=== PATIENT | female | born 1970 | race Caucasian/White ===

== ENCOUNTER → 2020-06-09 | Outpatient (CLI) | payer MEDICAID ==
[~2020-06-09] MED LIST: ACET-2708 PO; LEVO75TA7 PO; METF-414 PO
== END | disposition home or self-care (01) ==
LOC: LAB 08:29
PROVIDERS: ATTEND Neurological Surgery
DX: Z01.812 Encounter for preprocedural laboratory examination (principal); Z20.828 Contact with and (suspected) exposure to other viral communicable diseases
CPT/HCPCS: C9803; U0003

== ENCOUNTER 2020-06-11 05:24 | Inpatient (IN) | payer MEDICAID ==
[~2020-06-11] VITALS: Ht 165.1 cm; Wt 71.7 kg
[2020-06-11] VITALS (26 sets, daily range): BP systolic 72–133; BP diastolic 53–77
[2020-06-11] MEDS ORDERED: NORMAL SALINE 0.9% 10 ML SYR ONE (05:57)
[2020-06-11] MEDS ORDERED: THROMBIN (BOVINE) 5000 UNITS/VIAL TOP ONE (05:57)
[2020-06-11] MEDS ORDERED: BACITRACIN 50,000 UNITS/VIAL ONE (05:58)
[2020-06-11] MEDS ORDERED: SODIUM CHLORIDE 0.9% 1,000 ML IV SCH (06:00)
[2020-06-11 06:36] LABS: UCG SCREEN NEGATIVE
[2020-06-11] MEDS ORDERED: ROCURONIUM BROMIDE 10MG/ML VIAL 5ML IV ONE (07:00)
[2020-06-11] MEDS ORDERED: PROPOFOL 200MG/20ML VIAL IV ONE (07:00)
[2020-06-11] MEDS ORDERED: MIDAZOLAM HCL 2 MG/2 ML VIAL ONE (07:00)
[2020-06-11] MEDS ORDERED: FENTANYL CITRATE/PF 50MCG/ML 2ML VIAL ONE ×2 (07:00→07:39)
[2020-06-11] MEDS ORDERED: NEOSTIGMINE METHYLSULFATE 1MG/ML 10 ML VIAL ONE (07:00)
[2020-06-11] MEDS ORDERED: GLYCOPYRROLATE 0.2 MG/ML 2ML VIAL ONE (07:01)
[2020-06-11] MEDS ORDERED: NICARDIPINE 100 MG in SODIUM CHLORIDE 0.9% 60 ML IV PRN (07:15)
[2020-06-11] MEDS ORDERED: DEXAMETHASONE 4MG/ML 1ML VIAL ONE (07:37)
[2020-06-11] MEDS ORDERED: ONDANSETRON HCL 4MG/2ML INJ ONE (07:37)
[2020-06-11] MEDS ORDERED: LABETALOL HCL 5MG/ML VIAL 20ML IV ONE (09:00)
[2020-06-11] MEDS ORDERED: SODIUM CHLORIDE 0.9% 10ML VIAL ONE (09:00)
[2020-06-11] MEDS ORDERED: LIDOCAINE HCL 1% 20ML VIAL (Pyxis) INJ ONE (09:00)
[2020-06-11] MEDS ORDERED: EPHEDRINE SULFATE 50MG/ML VIAL ONE (09:00)
[2020-06-11] MEDS ORDERED: CEFAZOLIN SODIUM 1000MG/VIAL ONE (09:00)
[2020-06-11] MEDS: MORPHINE SULFATE 4 MG/ML CPJ (NOT FOR IM USE) IV PRN ×2 (09:44→18:22)
[2020-06-11] MEDS: DEXT 5%/LACTATED RINGERS 1,000 ML IV SCH ×3 (09:45→20:03)
[2020-06-11] MEDS ORDERED: NALOXONE INJ IV PRN (10:15)
[2020-06-11] MEDS ORDERED: ONDANSETRON INJ IV PRN (10:15)
[2020-06-11] MEDS: HYDROMORPHONE PCA 10MG/50ML IV PRN (11:11)
[2020-06-11] MEDS: DEXAMETHASONE 4MG/ML 1ML VIAL IV SCH ×3 (12:55→23:52)
[2020-06-11] MEDS: CEFAZOLIN 1000MG PREMIX 50 ML IV SCH ×2 (13:34→21:21)
[2020-06-11] MEDS: DIPHENHYDRAMINE INJ IV PRN ×2 (13:39→20:16)
[2020-06-11] MEDS ORDERED: SENNOSIDES/DOCUSATE SOD 8.6/50MG TABLET PO PRN (13:45)
[2020-06-11] MEDS ORDERED: CEFAZOLIN SODIUM 1000MG/VIAL IV SCH (14:00)
[2020-06-12] VITALS (21 sets, daily range): BP systolic 98–157; BP diastolic 61–95
[2020-06-12] MEDS: CEFAZOLIN 1000MG PREMIX 50 ML IV SCH ×2 (05:18→15:01)
[2020-06-12] MEDS: DEXAMETHASONE 4MG/ML 1ML VIAL IV SCH ×2 (05:18→12:25)
[2020-06-12] MEDS: DIPHENHYDRAMINE INJ IV PRN (05:18)
[2020-06-12 05:46] LABS: CHLORIDE 105 mEq/L (98-107)
[2020-06-12 05:47] LABS: HEMATOCRIT. 36.9 % (36.0-48.0); HEMOGLOBIN. 12.5 g/dL (12.0-16.0); MEAN CORPUSCULAR HEMOGLOBIN 30.8 pg (28.0-32.0); MEAN PLATELET VOLUME 7.9 fl (7.4-10.4); PLATELET 315 x1000/uL (130-400); RED BLOOD CELL COUNT 4.05 mill/uL (4.2-5.4); RED CELL DISTRIBUTION WIDTH 13.6 % (11.6-14.6)
[2020-06-12] MEDS ORDERED: DEXTROSE 50% WATER 50ML SYRINGE IV PRN ×2 (09:30→10:30)
[2020-06-12 10:54] LABS: PLATELET ESTIMATE NORMAL
[2020-06-12] MEDS ORDERED: BLOOD SUGAR DIAGNOSTIC STRIP TEST SCH (11:30)
[2020-06-12] MEDS ORDERED: INSULIN LISPRO 100 UNITS/ML SUBCUT SCH (12:00)
[2020-06-12] MEDS: BLOOD SUGAR DIAGNOSTIC STRIP TEST SCH ×3 (12:25→21:03)
[2020-06-12] MEDS: INSULIN LISPRO 100 UNITS/ML SUBCUT SCH ×3 (12:30→22:27)
[2020-06-12] MEDS: DEXT 5%/LACTATED RINGERS 1,000 ML IV SCH (13:42)
[2020-06-12] MEDS: HYDROMORPHONE PCA 10MG/50ML IV PRN (22:32)
[2020-06-13] VITALS: BP 123/68
[2020-06-13] MEDS: DEXT 5%/LACTATED RINGERS 1,000 ML IV SCH ×2 (01:39→10:00)
[2020-06-13 04:00] VITALS: BP 126/83
[2020-06-13] MEDS: BLOOD SUGAR DIAGNOSTIC STRIP TEST SCH ×4 (06:28→21:00)
[2020-06-13] MEDS: INSULIN LISPRO 100 UNITS/ML SUBCUT SCH ×4 (06:29→21:00)
[2020-06-13] MEDS: LEVOTHYROXINE SODIUM 75MCG TABLET PO SCH (06:30)
[2020-06-13 06:46] LABS: BASOPHILS % 0.1 % (0.0-2.0); EOSINOPHILS % 0.1 % (0.0-5.0); HEMATOCRIT. 37.6 % (36.0-48.0); HEMOGLOBIN. 12.6 g/dL (12.0-16.0); LYMPHOCYTES % 15.7 % (20.0-50.0); MEAN CORPUSCULAR HEMOGLOBIN 30.5 pg (28.0-32.0); MEAN CORPUSCULAR VOLUME 91.1 fL (81.0-99.0); MEAN PLATELET VOLUME 8.3 fl (7.4-10.4); MONOCYTES % 5.3 % (2.0-8.0); NEUTROPHILS % 78.8 % (40.0-76.0); PLATELET 315 x1000/uL (130-400); RED BLOOD CELL COUNT 4.13 mill/uL (4.2-5.4); RED CELL DISTRIBUTION WIDTH 13.5 % (11.6-14.6)
[2020-06-13 06:53] LABS: CHLORIDE 106 mEq/L (98-107)
[2020-06-13 08:00] VITALS: BP 124/79
[2020-06-13] MEDS: METFORMIN HCL 500MG TABLET PO SCH (08:27)
[2020-06-13] MEDS: DOCUSATE SODIUM 100MG CAPSULE PO SCH ×2 (08:27→08:30)
[2020-06-13 12:00] VITALS: BP 155/58
[2020-06-13 16:00] VITALS: BP 103/75
[2020-06-13 20:00] VITALS: BP 112/81
[2020-06-14] VITALS: BP 116/86
[2020-06-14 04:00] VITALS: BP 111/79
[2020-06-14] MEDS: DEXT 5%/LACTATED RINGERS 1,000 ML IV SCH (05:15)
[2020-06-14] MEDS: BLOOD SUGAR DIAGNOSTIC STRIP TEST SCH (06:18)
[2020-06-14] MEDS: LEVOTHYROXINE SODIUM 75MCG TABLET PO SCH (06:18)
[2020-06-14] MEDS: INSULIN LISPRO 100 UNITS/ML SUBCUT SCH (06:24)
[2020-06-14 06:34] LABS: BASOPHILS % 0.4 % (0.0-2.0); EOSINOPHILS % 0.8 % (0.0-5.0); HEMATOCRIT. 38.8 % (36.0-48.0); HEMOGLOBIN. 13.2 g/dL (12.0-16.0); LYMPHOCYTES % 28.5 % (20.0-50.0); MEAN CORPUSCULAR HEMOGLOBIN 30.7 pg (28.0-32.0); MEAN CORPUSCULAR VOLUME 90.3 fL (81.0-99.0); MEAN PLATELET VOLUME 8.1 fl (7.4-10.4); MONOCYTES % 5.1 % (2.0-8.0); NEUTROPHILS % 65.2 % (40.0-76.0); PLATELET 301 x1000/uL (130-400); RED CELL DISTRIBUTION WIDTH 13.5 % (11.6-14.6)
[2020-06-14 07:48] LABS: CHLORIDE 107 mEq/L (98-107)
[2020-06-14 08:00] VITALS: BP 104/75
[2020-06-14] MEDS: METFORMIN HCL 500MG TABLET PO SCH (08:26)
[2020-06-14] MEDS: DOCUSATE SODIUM 100MG CAPSULE PO SCH (08:26)
[2020-06-14 11:18] VITALS: BP 104/75
[2020-06-14 12:00] VITALS: BP 116/80
== END 2020-06-14 12:09 | disposition home or self-care (01) | DRG 321 ==
LOC: OR 05:24 → MICUNO 05:25 → 6EST 06-12 10:37
PROVIDERS: ADMIT Internal Medicine; ATTEND Internal Medicine
PROC: 0RG20J0 Fusion of 2 or more Cervical Vertebral Joints with Synthetic Substitute, Anterior Approach, Anterior Column, Open Approach (ICD-10-PCS; principal; 2020-06-11)
PROC: 0RB30ZZ Excision of Cervical Vertebral Disc, Open Approach (ICD-10-PCS; 2020-06-11)
PROC: 0RG10K0 Fusion of Cervical Vertebral Joint with Nonautologous Tissue Substitute, Anterior Approach, Anterior Column, Open Approach (ICD-10-PCS; 2020-06-11)
PROC: 00NW0ZZ Release Cervical Spinal Cord, Open Approach (ICD-10-PCS; 2020-06-11)
PROC: BR101ZZ Fluoroscopy of Cervical Spine using Low Osmolar Contrast (ICD-10-PCS; 2020-06-11)
DX: M48.02 Spinal stenosis, cervical region (principal); M47.22 Other spondylosis with radiculopathy, cervical region; G82.50 Quadriplegia, unspecified; E11.9 Type 2 diabetes mellitus without complications; E03.9 Hypothyroidism, unspecified; G95.89 Other specified diseases of spinal cord; M47.12 Other spondylosis with myelopathy, cervical region; R26.89 Other abnormalities of gait and mobility
CPT/HCPCS: 36415; 72040; 72141; 76000; 80048; 81025; 82962; 83036; 84443; 85025; 86850; 86900; 88311; 95863; 95925; 95926; 95928; 95929; 97110; 97116; 97162; 97166; 97530; 97535; C1713; J0690; J1100; J1170; J1200; J2250; J2270; J2405; J2704; J2710; J3010; J3490; J7121; L0172

== ENCOUNTER 2025-01-09 06:55 | Emergency (ER) | payer SELFPAY ==
[~2025-01-09] VITALS: Ht 157.5 cm; Wt 66.0 kg
[2025-01-09 07:00] VITALS: O2SAT 98
[2025-01-09] MEDS: ACETAMINOPHEN WITH CODEINE 300/30MG TABLET PO ONE (07:43)
[2025-01-09] MEDS ORDERED: IBUP-2028 PO (09:00)
[2025-01-09 09:27] VITALS: BP 126/88; PULSE 78; RESP 18; TEMP 36.9; O2SAT 98
== END 2025-01-09 09:33 | disposition home or self-care (01) ==
LOC: ER 06:55
DX: M25.562 Pain in left knee (principal); Z79.890 Hormone replacement therapy; Z79.1 Long term (current) use of non-steroidal anti-inflammatories (NSAID); Z79.84 Long term (current) use of oral hypoglycemic drugs; Z79.899 Other long term (current) drug therapy; W10.9XXA Fall (on) (from) unspecified stairs and steps, initial encounter; Y93.89 Activity, other specified; Y92.89 Other specified places as the place of occurrence of the external cause; Y99.8 Other external cause status
CPT/HCPCS: 29505; 73560; 81025; 99283